=== PATIENT | female | born 1990 | race Caucasian/White ===

== ENCOUNTER 2016-09-04 04:50 | Inpatient (IN) | payer BC ==
[2016-09-04] MEDS ORDERED: Sodium Chloride 0.9% 10 ML Syringe FLUSH PRN (04:59)
[2016-09-04] MEDS ORDERED: Carboprost Tromethamine 250 MCG/1 ML Amp IM PRN (04:59)
[2016-09-04] MEDS ORDERED: Terbutaline 1 MG/ML SDV SUBCUT PRN (04:59)
[2016-09-04] MEDS ORDERED: Butorphanol 1 MG/ML SDV IVPUSH PRN (04:59)
[2016-09-04] MEDS ORDERED: Water For Irrigation,Sterile 1,000 ML Container IRR PRN (04:59)
[2016-09-04] MEDS ORDERED: Misoprostol 200 MCG Tab PO PRN (04:59)
[2016-09-04] MEDS ORDERED: Lidocaine 1% 50 ML MDV INJECT PRN (04:59)
[2016-09-04] MEDS ORDERED: Methylergonovine 0.2 MG/1 ML Amp IM PRN (04:59)
[2016-09-04] MEDS ORDERED: Sodium Chloride 0.9% 2.5 ML Syringe FLUSH PRN (04:59)
[2016-09-04] MEDS ORDERED: Ampicillin 2 GM in Sodium Chloride 0.9% 100 ML IV ONE (05:00)
[2016-09-04] MEDS ORDERED: Oxytocin/Lactated Ringers 30 UNIT/500 ML BAG IV SCH (05:00)
[2016-09-04] MEDS: Lactated Ringers 1,000 ML IV SCH ×2 (05:25→08:43)
[2016-09-04] MEDS ORDERED: Ampicillin 1 GM in Sodium Chloride 0.9% 50 ML IV SCH (09:00)
[2016-09-04] MEDS ORDERED: Docusate Sodium 100 MG Cap PO PRN (09:33)
[2016-09-04] MEDS ORDERED: Acetaminophen 500 MG Tab PO PRN ×2 (09:33)
[2016-09-04] MEDS ORDERED: Benzocaine/Menthol 20%-0.5% Spray 78 GM Cannister TOP PRN (09:33)
[2016-09-04] MEDS ORDERED: Bisacodyl 10 MG Supp RECTAL PRN (09:33)
[2016-09-04] MEDS ORDERED: oxyCODONE 5 MG Tab PO PRN (09:33)
[2016-09-04] MEDS ORDERED: Ibuprofen 400 MG Tab PO PRN (09:33)
[2016-09-04] MEDS ORDERED: Lanolin 100% Cream 7 GM Tube TOP PRN (09:33)
[2016-09-04] MEDS ORDERED: Witch Hazel Medicated Pads 40/Jar TOP PRN (09:33)
[2016-09-04] MEDS: Ibuprofen 800 MG Tab PO PRN ×2 (11:06→17:29)
[2016-09-05 07:57] VITALS: BP 93/52
--- NOTE | 2016-09-05 09:12 | PCM.PNPP ---
- General Info Date of Service: 09/05/16 Functional Status: Reports: pain controlled, tolerating diet, ambulating, urinating - Review of Systems General: Denies: Fever, Weakness Pulmonary: Denies: shortness of breath Cardiovascular: Denies: Chest Pain, Lightheadedness Gastrointestinal: Denies: Abdominal pain, Nausea, Vomiting Genitourinary: Denies: dysuria, flank pain Skin: Reports: no symptoms Psychiatric: Reports: no symptoms - General Info Date of Service: 09/05/16 - Patient Data Vital Signs - most recent: Last Vital Signs Temp 36.9 C 09/05/16 07:55 Pulse 94 09/05/16 07:55 Resp 16 09/05/16 07:55 BP 93/52 L 09/05/16 07:55 Pulse Ox 96 09/05/16 07:55 Weight - most recent: 93.44 kg Lab Results - last 24 hrs: Laboratory Results - last 24 hr 09/05/16 Range/Units 04:35 Hgb 10.7 L (12.0-16.0) g/dL Hct 32.5 L (36.0-46.0) % Med Orders - Current: Current Medications Acetaminophen (Tylenol Extra Strength) 500 mg PO Q4H PRN PRN Reason: Pain Acetaminophen (Tylenol Extra Strength) 1,000 mg PO Q4H PRN PRN Reason: Pain Benzocaine/Menthol (Dermoplast Pain Relief 20%-0.5% Leigh) 78 gm TOP ASDIRECTED PRN PRN Reason: Perineal Comfort Measure Last Admin: 09/04/16 11:05 Dose: 1 can Bisacodyl (Dulcolax) 10 mg RECTAL .ONCE PRN PRN Reason: Constipation Carboprost Tromethamine (Hemabate Ds) 250 mcg IM ASDIRECTED PRN PRN Reason: Post Hemorrhage Docusate Sodium (Colace) 100 mg PO BID PRN PRN Reason: Constipation Last Admin: 09/04/16 11:06 Dose: 100 mg Emollient Ointment (Lansinoh Hpa) 0 gm TOP ASDIRECTED PRN PRN Reason: Sore Nipples Lactated Ringer's (Ringers, Lactated) 1,000 mls @ 150 mls/hr IV ASDIRECTED SURINDER Last Admin: 09/04/16 08:43 Dose: 150 mls/hr Oxytocin/Lactated Ringer's (Pitocin In Lr 30 Units/500 Ml) 30 unit in 500 mls @ 2 mls/hr IV TITRATE SURINDER; 2 MUNITS/MIN PRN Reason: Protocol Last Titration: 09/04/16 09:11 Dose: 999 mls/hr Ibuprofen (Motrin) 400 mg PO Q4H PRN PRN Reason: Pain Ibuprofen (Motrin) 800 mg PO Q6H PRN PRN Reason: Pain Last Admin: 09/04/16 17:29 Dose: 800 mg Methylergonovine Maleate (Methergine) 0.2 mg IM ASDIRECTED PRN PRN Reason: Post Hemorrhage Oxycodone HCl (Oxycodone) 5 mg PO Q2H PRN PRN Reason: Pain Sodium Chloride (Saline Flush) 2.5 ml FLUSH ASDIRECTED PRN PRN Reason: Keep Vein Open Sterile Water (Sterile Water For Irrigation) 1,000 ml IRR ASDIRECTED PRN PRN Reason: delivery Witch Priyanka (Tucks) 1 pad TOP ASDIRECTED PRN PRN Reason: comfort care Last Admin: 09/04/16 11:05 Dose: 1 tub Discontinued Medications Butorphanol Tartrate (Stadol) 1 mg IVPUSH Q1H PRN PRN Reason: Pain Ampicillin Sodium 2 gm/ Sodium (Chloride) 100 mls @ 200 mls/hr IV ONETIME ONE Stop: 09/04/16 05:29 Last Admin: 09/04/16 05:41 Dose: 200 mls/hr Ampicillin Sodium 1 gm/ Sodium (Chloride) 50 mls @ 100 mls/hr IV Q4H SURINDER Last Admin: 09/04/16 09:43 Dose: Not Given Lidocaine HCl (Xylocaine 1%) 50 ml INJECT .ONCE PRN PRN Reason: Laceration repair Misoprostol (Cytotec) 200 mcg PO .ONCE PRN PRN Reason: Post Hemorrhage Sodium Chloride (Saline Flush) 10 ml FLUSH ASDIRECTED PRN PRN Reason: Keep Vein Open Terbutaline Sulfate (Brethine) 0.25 mg SUBCUT ASDIRECTED PRN PRN Reason: Tacysystole - Interaction Feeding: Breastfed ; Nursed Well Support Person: - Recovery Exam Fundal Tone: Firm Fundal Level: At Umbilicus Fundal Placement: Midline Lochia Amount: Small Lochia Color: Rubra/Red Perineum Description: Other (see below) Other Perinuem Description: Second degree perenial tear,repaired Episiotomy/Laceration: Approximated Bladder Status: Voiding Urinary Elimination: Voided - Exam General: alert, oriented Lungs: Normal respiratory effort Cardiovascular: Regular Rate, Regular Rhythm Abdomen: bowel sounds present, soft. No: CVA tenderness Extremities: no calf tenderness Wound/Incisions: healing well Psy/Mental Status: alert, normal affect - Problem List & Annotations (1) Vaginal delivery SNOMED Code(s): 501977615 Code(s): O80 - ENCOUNTER FOR FULL-TERM UNCOMPLICATED DELIVERY Status: Acute Current Visit: Yes - Problem List Review Problem List Initiated/Reviewed/Updated: Yes - My Orders Last 24 Hours: My Active Orders 09/04/16 09:33 Patient Status [ADT] Routine May Shower [RC] ASDIRECTED Up ad Anna [RC] ASDIRECTED Vital Signs [RC] PER UNIT ROUTINE Acetaminophen [Tylenol Extra Strength] 1,000 mg PO Q4H PRN Acetaminophen [Tylenol Extra Strength] 500 mg PO Q4H PRN Benzocaine/Menthol [Dermoplast Pain Relief 20%-0.5% Leigh] 78 gm TOP ASDIRECTED PRN Bisacodyl [Dulcolax] 10 mg RECTAL .ONCE PRN Docusate Sodium [Colace] 100 mg PO BID PRN Ibuprofen [Motrin] 400 mg PO Q4H PRN Ibuprofen [Motrin] 800 mg PO Q6H PRN Lanolin [Lansinoh HPA] See Dose Instructions TOP ASDIRECTED PRN Witch Priyanka [Tucks] 1 pad TOP ASDIRECTED PRN oxyCODONE 5 mg PO Q2H PRN Assess Lochia [WOMSER] Per Unit Routine Assess Uterine Involution [WOMSER] Per Unit Routine Peripheral IV Discontinue [OM.PC] Routine 09/04/16 09:34 Ice Therapy [OM.PC] Per Unit Routine Perineal Care [OM.PC] Per Unit Routine Sitz Bath [OM.PC] Per Unit Routine 09/05/16 09:09 Ready for Discharge [RC] PER UNIT ROUTINE - Assessment Assessment:: PPD 1 status post /2nd MLL repaired - Plan Plan:: Doing well overall, would like to go home today. Infection and bleeding warnings reviewed. Discharge to home. Discharge instructions reviewed. Follow up at [facility] 6 weeks.
--- NOTE | 2016-09-09 09:59 | OR ---
SURGEON: Maribell Ayers M.D. DATE OF PROCEDURE: 09/04/2016 PREOPERATIVE DIAGNOSES: 1. A 39 and 6 weeks intrauterine . 2. Induction of labor. POSTOPERATIVE DIAGNOSES: 1. A 39 and 6 weeks intrauterine . 2. Induction of labor. PROCEDURE: Spontaneous vaginal delivery, second-degree midline laceration repaired. ESTIMATED BLOOD LOSS: 350 mL. ANESTHESIA: Local. COMPLICATIONS: None. FINDINGS: Term male. score 8 at 1 minute, 9 at 5 minutes. Weight 3380 g. Spontaneous delivery, intact placenta, 3-vessel cord. DISPOSITION: to nursery, mom in LDRP, stable. PROCEDURE DETAILS: The patient is a 26-year-old, G2, P0-1-0-1, at 39 and 6 weeks' gestational age, who presents today for scheduled induction of labor due to term gestation lives remote from the hospital. Her previous was complicated by delivery at 28 weeks. This , she has received weekly progesterone injections up until 36 weeks. On the morning of admission, the patient was initially found to be at 2 cm. GBBS has been found in her urine culture. Therefore, she was admitted, routine labs were drawn, and initiated on ampicillin prophylaxis. The patient responded readily to the Pitocin and shortly after 8:00 a.m., was found to be increasingly uncomfortable and quite rapidly was already 6 cm. She continued to progress rapidly and had spontaneous rupture of membranes and quickly progressed to complete. Thereafter, I was called for delivery. Upon my arrival, the patient was placed in modified dorsal lithotomy position, prepped and draped in usual aseptic manner. station was already +4. She pushed readily and was able to deliver 's head atraumatically, spontaneously, followed by anterior shoulder, posterior shoulder, and main body without difficulty. Infant's oropharynx and nares were bulb suctioned. Cord was clamped x2 and cut. Infant was handed off to mother with attending nursing staff at her side. Cord arterial, cord venous, cord blood samples were obtained. Light suprapubic pressure was applied while the placenta was delivered spontaneously intact. Vigorous fundal uterine massage was then applied while 20 units of Picotin was delivered in 1 L of IV fluid. Upon inspection of cervix, vaginal sidewalls and perineum, there was found to be a second-degree midline laceration present. This was repaired using 3-0 Vicryl in the usual fashion after prepping the area with approximately 7 mL of 1% lidocaine. The patient tolerated the repair well. Upon inspection remainder of cervix, vaginaol sidewalls and perineum, they were found to be intact. Uterus remained firm. Hemostasis evident. The patient will remain in LDRP in stable condition. in nursery. Sponge and needle counts correct x2. KHAI / LOLA /[id number] MTDD
== END 2016-09-05 13:10 | disposition home or self-care (01) | DRG 560 ==
LOC: MW.OBCHECK 04:50 → MW.OB 04:50 → MW.OBCHECK 04:59 → OBSVTOIN 09:11 → MW.OB 14:59
PROVIDERS: ADMIT Obstetrics & Gynecology; ATTEND Obstetrics & Gynecology
PROC: 10E0XZZ Delivery of Products of Conception, External Approach (ICD-10-PCS; principal; 2016-09-04)
PROC: 3E033VJ Introduction of Other Hormone into Peripheral Vein, Percutaneous Approach (ICD-10-PCS; 2016-09-04)
PROC: 0KQM0ZZ Repair Perineum Muscle, Open Approach (ICD-10-PCS; 2016-09-04)
DX: O70.1 Second degree perineal laceration during delivery (principal); Z3A.39 39 weeks gestation of pregnancy; Z37.0 Single live birth
CPT/HCPCS: 36415; 59025; 85014; 85018; 85027; 86850; 86900; 86901; A9270-GY; J0290; J7030; J7120

== ENCOUNTER 2019-11-08 21:28 | Inpatient (IN) | payer OTHER ==
[2019-11-08] MEDS ORDERED: Misoprostol 200 MCG Tab PO PRN (21:55)
[2019-11-08] MEDS ORDERED: Nalbuphine 10 MG/1 ML Vial IVPUSH PRN (21:55)
[2019-11-08] MEDS ORDERED: Methylergonovine 0.2 MG/1 ML Amp IM PRN (21:55)
[2019-11-08] MEDS ORDERED: Water For Irrigation,Sterile 1,000 ML Container IRR PRN (21:55)
[2019-11-08] MEDS ORDERED: Sodium Chloride 0.9% 2.5 ML Syringe FLUSH PRN (21:55)
[2019-11-08] MEDS ORDERED: Butorphanol 1 MG/ML SDV IVPUSH PRN (21:55)
[2019-11-08] MEDS ORDERED: Sodium Chloride 0.9% 10 ML Syringe FLUSH PRN (21:55)
[2019-11-08] MEDS ORDERED: Tranexamic Acid 1,000 MG in Sodium Chloride 0.9% 100 ML IV PRN (21:55)
[2019-11-08] MEDS ORDERED: Carboprost Tromethamine 250 MCG/1 ML Amp IM PRN (21:55)
[2019-11-08] MEDS ORDERED: Lidocaine 1% 50 ML MDV INJECT PRN (21:55)
[2019-11-08] MEDS ORDERED: Ondansetron 4 MG/2 ML SDV IVPUSH PRN (21:55)
[2019-11-08] MEDS ORDERED: Sodium Chloride 0.9% 10 ML SDV IV PRN (21:55)
[2019-11-08] MEDS ORDERED: Oxytocin/0.9 % Sodium Chloride 30 UNIT/500 ML BAG IV SCH (22:00)
[2019-11-08] MEDS ORDERED: Ampicillin 2 GM in Sodium Chloride 0.9% 100 ML IV ONE (22:30)
[2019-11-08] MEDS: Lactated Ringers 1,000 ML IV SCH ×2 (22:59→23:36)
[2019-11-08] MEDS ORDERED: Ropivacaine 0.2% PF 2 MG/ML 20 ML SDV ONE (23:00)
[2019-11-08] MEDS ORDERED: fentaNYL/Bupivacaine-NS 2 MCG/ML-0.125%/PF 100 ML Bag EPIDUR ONE (23:00)
--- NOTE | 2019-11-08 23:36 | PCM.PREANE ---
Preanesthetic Assessment - Procedure Proposed Procedure: labor epidural - Anesthesia/Transfusion/Family Hx Anesthesia History: Prior Anesthesia Without Reaction Family History of Anesthesia Reaction: No - Review of Systems General: No Symptoms Pulmonary: No Symptoms Cardiovascular: No Symptoms Gastrointestinal: No Symptoms Neurological: No Symptoms Other: Reports: None - Physical Assessment Height: 5 ft 4 in Weight: 95.254 kg ASA Class: 2 Mental Status: Alert & Oriented x3 Dentition: Reports: Normal Dentition Thyro-Mental Finger Breadths: 3 Mouth Opening Finger Breadths: 3 ROM/Head Extension: Full Lungs: Clear to Auscultation, Normal Respiratory Effort Cardiovascular: Regular Rate, Regular Rhythm - Lab Values: Laboratory Last Values WBC 10.63 K/uL (4.0-11.0) 11/08/19 22:10 RBC 4.19 M/uL (4.30-5.90) L 11/08/19 22:10 Hgb 12.3 g/dL (12.0-16.0) 11/08/19 22:10 Hct 37.7 % (36.0-46.0) 11/08/19 22:10 MCV 90.0 fL (80.0-98.0) 11/08/19 22:10 MCH 29.4 pg (27.0-32.0) 11/08/19 22:10 MCHC 32.6 g/dL (31.0-37.0) 11/08/19 22:10 RDW Std Deviation 48.0 fl (28.0-62.0) 11/08/19 22:10 RDW Coeff of Todd 15 % (11.0-15.0) 11/08/19 22:10 Plt Count 178 K/uL (150-400) 11/08/19 22:10 MPV 11.90 fL (7.40-12.00) 11/08/19 22:10 Nucleated RBC % 0.0 /100WBC 11/08/19 22:10 Nucleated RBCs # 0 K/uL 11/08/19 22:10 - Allergies Allergies/Adverse Reactions: Allergies Allergy/AdvReac Type Severity Reaction Status Date / Time No Known Allergies Allergy Verified 11/08/19 21:54 - Blood Product(s) Available: None - Acknowledgements Anesthesia Type Planned: Epidural Pt an Appropriate Candidate for the Planned Anesthesia: Yes Alternatives and Risks of Anesthesia Discussed w Pt/Guardian: Yes Pt/Guardian Understands and Agrees with Anesthesia Plan: Yes PreAnesthesia Questionnaire ASSISTED LIVING MANAGER History: Reports: - Past Surgical History HEENT Surgical History: Reports: Oral Surgery - HOME MEDS Home Medications: Home Meds Pnv No.95/Ferrous Fum/Folic AC [ Tablet] 1 tab PO DAILY 09/04/16 [ History] - CURRENT (IN HOUSE) MEDS Current Meds: Current Medications Butorphanol Tartrate (Stadol) 1 mg IVPUSH Q1H PRN PRN Reason: Pain Carboprost Tromethamine (Hemabate Ds) 250 mcg IM ASDIRECTED PRN PRN Reason: Post Hemorrhage Ampicillin Sodium 1 gm/ Sodium (Chloride) 50 mls @ 100 mls/hr IV Q4H SURINDER Lactated Ringer's (Ringers, Lactated) 1,000 mls @ 150 mls/hr IV ASDIRECTED SURINDER Last Admin: 11/08/19 22:59 Dose: 999 mls/hr Oxytocin/Sodium Chloride (Oxytocin 30 Unit/500 Ml-Ns) 30 unit in 500 mls @ 999 mls/hr IV TITRATE [facility] Tranexamic Acid 1,000 mg/ (Sodium Chloride) 110 mls @ 660 mls/hr IV ONETIME PRN PRN Reason: Bleeding Lidocaine HCl (Xylocaine 1%) 50 ml INJECT ONETIME PRN PRN Reason: Laceration repair Methylergonovine Maleate (Methergine) 0.2 mg IM ASDIRECTED PRN PRN Reason: Post Hemorrhage Misoprostol (Cytotec) 200 mcg PO ONETIME PRN PRN Reason: Post Hemorrhage Nalbuphine HCl (Nubain) 10 mg IVPUSH Q1H PRN PRN Reason: Pain (severe 7-10) Ondansetron HCl (Zofran) 4 mg IVPUSH Q6H PRN PRN Reason: Nausea/Vomiting Sodium Chloride (Saline Flush) 10 ml FLUSH ASDIRECTED PRN PRN Reason: Keep Vein Open Sodium Chloride (Saline Flush) 2.5 ml FLUSH ASDIRECTED PRN PRN Reason: Keep Vein Open Sodium Chloride (Normal Saline) 10 ml IV ASDIRECTED PRN PRN Reason: IV Use Sterile Water (Sterile Water For Irrigation) 1,000 ml IRR ASDIRECTED PRN PRN Reason: delivery Discontinued Medications Ampicillin Sodium 2 gm/ Sodium (Chloride) 100 mls @ 200 mls/hr IV ONETIME ONE Stop: 11/08/19 22:59 Last Admin: 11/08/19 22:19 Dose: 200 mls/hr Ropivacaine (Naropin 0.2%) Confirm Administered Dose 20 ml .ROUTE .[facility]-MED ONE Stop: 11/08/19 23:01
[2019-11-09] MEDS ORDERED: Ampicillin 1 GM in Sodium Chloride 0.9% 50 ML IV SCH (02:30)
[2019-11-09] MEDS ORDERED: Acetaminophen 500 MG Tab PO PRN ×2 (05:23)
[2019-11-09] MEDS ORDERED: Benzocaine/Menthol 20%-0.5% Spray 78 GM Cannister TOP PRN (05:23)
[2019-11-09] MEDS ORDERED: Aluminum Hydroxide/Magnesium Hydroxide/Simethicone Susp 30 ML Cup PO PRN (05:23)
[2019-11-09] MEDS ORDERED: Docusate Sodium 100 MG Cap PO PRN (05:23)
[2019-11-09] MEDS ORDERED: Witch Hazel Medicated Pads 40/Jar TOP PRN (05:23)
[2019-11-09] MEDS ORDERED: Lanolin 100% Cream 7 GM Tube TOP PRN (05:23)
[2019-11-09] MEDS ORDERED: Bisacodyl 10 MG Supp RECTAL PRN (05:23)
[2019-11-09] MEDS ORDERED: Ibuprofen 400 MG Tab PO PRN (05:23)
[2019-11-09] MEDS ORDERED: oxyCODONE 5 MG Tab PO PRN (05:23)
--- NOTE | 2019-11-09 05:31 | PCM.OPNOTE ---
- General Post-Op/Procedure Note Date of Surgery/Procedure: 11/09/19 Operative Procedure(s): /IP Findings: Viable male APGARs 7, 9 weight 3580 gm. Spontaneous delivery intact placenta with 3V cord Pre Op Diagnosis: 39/5 week IUP. SROM. GBBS + Post-Op Diagnosis: Same Anesthesia Technique: Epidural Primary Surgeon: Maribell Ayers EBL in mLs: 250 Complications: None known Condition: Stable Free Text/Narrative:: Dictation [id number]
--- NOTE | 2019-11-09 06:34 | OR ---
SURGEON: Maribell Ayers M.D. DATE OF PROCEDURE: 11/09/2019 PREOPERATIVE DIAGNOSES: 1. 39 and 5 weeks' intrauterine . 2. Spontaneous rupture of membranes. 3. Group B Streptococcus positive. POSTOPERATIVE DIAGNOSES: 1. 39 and 5 weeks' intrauterine . 2. Spontaneous rupture of membranes. 3. Group B Streptococcus positive. PROCEDURE: Spontaneous vaginal delivery, intact perineum. PRIMARY SURGEON: Maribell Ayers M.D. ANESTHESIA: Epidural. ESTIMATED BLOOD LOSS: 250 mL. COMPLICATIONS: None known. FINDINGS: Viable male scores 8 at one minute and 9 at five minutes. Weight of 3580 g. Spontaneous delivery, intact placenta, 3-vessel cord. DISPOSITION: to nursery. Mom in LDRP. PROCEDURE DETAILS: Bridget is a 29-year-old, G3, P2 at 39 and 4 weeks' gestational age, who presented on the evening of 11/08/2019 with a leaking fluid, clear. On initial examination, she was found to be grossly ruptured. She is known group B beta strep positive. Therefore, she was admitted. Routine labs were drawn. IV hydration was initiated, and group B beta strep prophylaxis was initiated. The heart tones were category 1. The patient was initially found to be 4 to 5 cm. After being hydrated, she underwent regional anesthesia in the form of epidural, became more comfortable, and she continued to progress through the public defender hours. Shortly before 5 a.m., the patient was found to be complete, 100% effaced, +2 station, was called for delivery. Upon my arrival, the patient was placed in modified dorsal lithotomy position, was prepped and draped in the usual aseptic manner. Began pushing efforts. With the next 2 contractions, she was able to deliver the infant's head atraumatically spontaneously, followed by anterior shoulder, posterior shoulder, and remainder of the body without difficulty. The infant was handed off to his mother with attending nursing staff at her side. After delayed cord was clamped x2 and cut, cord arterial, cord venous, cord blood sampling were obtained. Light pressure was applied while the placenta delivered spontaneously intact. Vigorous fundal uterine massage was then applied while 30 units Pitocin was delivered in 500 mL of fluid. Upon inspection of cervix, vaginal sidewall, and perineum, these were found to be intact. The uterus remained firm. Sponge count and instrument count were correct. The patient remained in LDRP. Infant to nursery. KHAI / LOLA /[id number]
[2019-11-09] MEDS: Ibuprofen 800 MG Tab PO PRN (10:36)
--- NOTE | 2019-11-09 15:04 | PCM48HPAN ---
Post Anesthesia Note - EVALUATION WITHIN 48HRS OF ANESTHETIC Vital Signs in Normal Range: Yes Patient Participated in Evaluation: Yes Respiratory Function Stable: Yes Airway Patent: Yes Cardiovascular Function Stable: Yes Hydration Status Stable: Yes Pain Control Satisfactory: Yes Nausea and Vomiting Control Satisfactory: Yes Mental Status Recovered: Yes Vital Signs: Last Vital Signs Temp 36.2 C 11/09/19 08:00 Pulse 92 11/09/19 08:00 Resp 16 11/09/19 08:00 BP 107/78 11/09/19 08:00 Pulse Ox 97 11/09/19 08:00 - COMMENTS/OBSERVATIONS Free Text/Narrative:: No anesthesia concerns or complications noted.
--- NOTE | 2019-11-10 13:18 | PCM.PNPP ---
- General Info Date of Service: 11/10/19 Functional Status: Reports: Pain Controlled, Tolerating Diet, Ambulating, Urinating - Review of Systems General: Reports: Fatigue. Denies: Fever, Weakness Pulmonary: Denies: Shortness of Breath Cardiovascular: Denies: Chest Pain, Palpitations, Lightheadedness Gastrointestinal: Denies: Abdominal Pain, Nausea, Vomiting Genitourinary: Reports: No Symptoms Musculoskeletal: Reports: No Symptoms Skin: Reports: No Symptoms Neurological: Reports: No Symptoms Psychiatric: Reports: No Symptoms - General Info Date of Service: 11/10/19 - Patient Data Vital Signs - Most Recent: Last Vital Signs Temp 36.3 C 11/09/19 20:00 Pulse 100 11/10/19 04:15 Resp 18 11/10/19 04:15 BP 129/75 11/10/19 04:15 Pulse Ox 97 11/10/19 04:15 Weight - Most Recent: 95.254 kg Lab Results - Last 24 Hours: Laboratory Results - last 24 hr 11/10/19 Range/Units 06:10 Hgb 11.1 L (12.0-16.0) g/dL Hct 34.6 L (36.0-46.0) % Med Orders - Current: Current Medications Acetaminophen (Tylenol Extra Strength) 500 mg PO Q4H PRN PRN Reason: Pain Acetaminophen (Tylenol Extra Strength) 1,000 mg PO Q4H PRN PRN Reason: Pain Al Hydroxide/Mg Hydroxide (Mag-Al Plus) 30 ml PO Q8H PRN PRN Reason: Heartburn Benzocaine/Menthol (Dermoplast Pain Relief 20%-0.5% Vista) 78 gm TOP ASDIRECTED PRN PRN Reason: Perineal Comfort Measure Bisacodyl (Dulcolax) 10 mg RECTAL ONETIME PRN PRN Reason: Constipation Carboprost Tromethamine (Hemabate Ds) 250 mcg IM ASDIRECTED PRN PRN Reason: Post Hemorrhage Docusate Sodium (Colace) 100 mg PO BID PRN PRN Reason: Constipation Emollient Ointment (Lansinoh Hpa) 0 gm TOP ASDIRECTED PRN PRN Reason: Sore Nipples Lactated Ringer's (Ringers, Lactated) 1,000 mls @ 150 mls/hr IV ASDIRECTED SURINDER Last Admin: 11/08/19 23:36 Dose: 150 mls/hr Oxytocin/Sodium Chloride (Oxytocin 30 Unit/500 Ml-Ns) 30 unit in 500 mls @ 999 mls/hr IV TITRATE SURINDER Last Admin: 11/09/19 04:58 Dose: 999 mls/hr Tranexamic Acid 1,000 mg/ (Sodium Chloride) 110 mls @ 660 mls/hr IV ONETIME PRN PRN Reason: Bleeding Ibuprofen (Motrin) 400 mg PO Q4H PRN PRN Reason: Pain Ibuprofen (Motrin) 800 mg PO Q6H PRN PRN Reason: Pain Last Admin: 11/09/19 10:36 Dose: 800 mg Lidocaine HCl (Xylocaine 1%) 50 ml INJECT ONETIME PRN PRN Reason: Laceration repair Methylergonovine Maleate (Methergine) 0.2 mg IM ASDIRECTED PRN PRN Reason: Post Hemorrhage Misoprostol (Cytotec) 200 mcg PO ONETIME PRN PRN Reason: Post Hemorrhage Nalbuphine HCl (Nubain) 10 mg IVPUSH Q1H PRN PRN Reason: Pain (severe 7-10) Ondansetron HCl (Zofran) 4 mg IVPUSH Q6H PRN PRN Reason: Nausea/Vomiting Oxycodone HCl (Oxycodone) 5 mg PO Q2H PRN PRN Reason: Pain Sodium Chloride (Saline Flush) 10 ml FLUSH ASDIRECTED PRN PRN Reason: Keep Vein Open Sodium Chloride (Saline Flush) 2.5 ml FLUSH ASDIRECTED PRN PRN Reason: Keep Vein Open Sodium Chloride (Normal Saline) 10 ml IV ASDIRECTED PRN PRN Reason: IV Use Sterile Water (Sterile Water For Irrigation) 1,000 ml IRR ASDIRECTED PRN PRN Reason: delivery Last Admin: 11/09/19 05:24 Dose: 1,000 ml Witch Priyanka (Tucks) 1 pad TOP ASDIRECTED PRN PRN Reason: comfort care Discontinued Medications Butorphanol Tartrate (Stadol) 1 mg IVPUSH Q1H PRN PRN Reason: Pain Fentanyl/Bupivacaine HCl (Uonzrphe-Jyoks-Jv 2 Mcg/Ml-0.125%) 100 ml EPIDUR .STK -MED ONE Stop: 11/08/19 23:01 Ampicillin Sodium 2 gm/ Sodium (Chloride) 100 mls @ 200 mls/hr IV ONETIME ONE Stop: 11/08/19 22:59 Last Admin: 11/08/19 22:19 Dose: 200 mls/hr Ampicillin Sodium 1 gm/ Sodium (Chloride) 50 mls @ 100 mls/hr IV Q4H SURINDER Last Admin: 11/09/19 01:58 Dose: 100 mls/hr Ropivacaine (Naropin 0.2%) Confirm Administered Dose 20 ml .ROUTE .STK-MED ONE Stop: 11/08/19 23:01 Last Admin: 11/09/19 16:02 Dose: Not Given - Interaction Support Person: - Recovery Exam Fundal Tone: Firm Fundal Level: At Umbilicus Fundal Placement: Midline Lochia Amount: Small Lochia Color: Rubra/Red Perineum Description: Intact, Minimal Bruising/Swelling Episiotomy/Laceration: None Bladder Status: Voiding Urinary Elimination: Voided - Exam General: Alert, Oriented Lungs: Normal Respiratory Effort Cardiovascular: Regular Rate, Regular Rhythm GI/Abdominal Exam: Normal Bowel Sounds, Soft Extremities: Pedal Edema (trace). No: Zoya's Sign Skin: Warm, Dry, Intact Neurological: No New Focal Deficit Psy/Mental Status: Alert, Normal Affect, Normal Mood - Problem List & Annotations (1) Vaginal delivery SNOMED Code(s): 369833764 Code(s): O80 - ENCOUNTER FOR FULL-TERM UNCOMPLICATED DELIVERY Status: Acute Current Visit: No - Problem List Review Problem List Initiated/Reviewed/Updated: Yes - Assessment Assessment:: PPD 1 status post - Plan Plan:: Continue PP cares. Doing well overall. Pedi may want to monitor baby the 48 hours given GBBS status positive. If so, plan discharge in am. Discharge instructions reviewed.
[2019-11-10] MEDS: Ibuprofen 800 MG Tab PO PRN (20:51)
[2019-11-11 04:29] VITALS: PULSE 83
--- NOTE | 2019-11-11 08:05 | PCM.PNPP ---
- General Info Date of Service: 11/11/19 Functional Status: Reports: Pain Controlled, Tolerating Diet, Ambulating, Urinating - Review of Systems General: Reports: No Symptoms HEENT: Reports: No Symptoms Pulmonary: Reports: No Symptoms Cardiovascular: Reports: No Symptoms Gastrointestinal: Reports: No Symptoms Genitourinary: Reports: No Symptoms Musculoskeletal: Reports: No Symptoms Skin: Reports: No Symptoms Neurological: Reports: No Symptoms Psychiatric: Reports: No Symptoms - Patient Data Vital Signs - Most Recent: Last Vital Signs Temp 36.4 C 11/11/19 04:28 Pulse 83 11/11/19 04:28 Resp 18 11/11/19 04:28 BP 114/74 11/11/19 04:28 Pulse Ox 97 11/11/19 04:28 Weight - Most Recent: 95.254 kg Med Orders - Current: Current Medications Acetaminophen (Tylenol Extra Strength) 500 mg PO Q4H PRN PRN Reason: Pain Acetaminophen (Tylenol Extra Strength) 1,000 mg PO Q4H PRN PRN Reason: Pain Al Hydroxide/Mg Hydroxide (Mag-Al Plus) 30 ml PO Q8H PRN PRN Reason: Heartburn Benzocaine/Menthol (Dermoplast Pain Relief 20%-0.5% [place]) 78 gm TOP ASDIRECTED PRN PRN Reason: Perineal Comfort Measure Bisacodyl (Dulcolax) 10 mg RECTAL ONETIME PRN PRN Reason: Constipation Carboprost Tromethamine (Hemabate Ds) 250 mcg IM ASDIRECTED PRN PRN Reason: Post Hemorrhage Docusate Sodium (Colace) 100 mg PO BID PRN PRN Reason: Constipation Emollient Ointment (Lansinoh Hpa) 0 gm TOP ASDIRECTED PRN PRN Reason: Sore Nipples Lactated Ringer's (Ringers, Lactated) 1,000 mls @ 150 mls/hr IV ASDIRECTED [facility] Last Admin: 11/08/19 23:36 Dose: 150 mls/hr Oxytocin/Sodium Chloride (Oxytocin 30 Unit/500 Ml-Ns) 30 unit in 500 mls @ 999 mls/hr IV TITRATE [facility] Last Admin: 11/09/19 04:58 Dose: 999 mls/hr Tranexamic Acid 1,000 mg/ (Sodium Chloride) 110 mls @ 660 mls/hr IV ONETIME PRN PRN Reason: Bleeding Ibuprofen (Motrin) 400 mg PO Q4H PRN PRN Reason: Pain Ibuprofen (Motrin) 800 mg PO Q6H PRN PRN Reason: Pain Last Admin: 11/10/19 20:51 Dose: 800 mg Lidocaine HCl (Xylocaine 1%) 50 ml INJECT ONETIME PRN PRN Reason: Laceration repair Methylergonovine Maleate (Methergine) 0.2 mg IM ASDIRECTED PRN PRN Reason: Post Hemorrhage Misoprostol (Cytotec) 200 mcg PO ONETIME PRN PRN Reason: Post Hemorrhage Nalbuphine HCl (Nubain) 10 mg IVPUSH Q1H PRN PRN Reason: Pain (severe 7-10) Ondansetron HCl (Zofran) 4 mg IVPUSH Q6H PRN PRN Reason: Nausea/Vomiting Oxycodone HCl (Oxycodone) 5 mg PO Q2H PRN PRN Reason: Pain Sodium Chloride (Saline Flush) 10 ml FLUSH ASDIRECTED PRN PRN Reason: Keep Vein Open Sodium Chloride (Saline Flush) 2.5 ml FLUSH ASDIRECTED PRN PRN Reason: Keep Vein Open Sodium Chloride (Normal Saline) 10 ml IV ASDIRECTED PRN PRN Reason: IV Use Sterile Water (Sterile Water For Irrigation) 1,000 ml IRR ASDIRECTED PRN PRN Reason: delivery Last Admin: 11/09/19 05:24 Dose: 1,000 ml Witch Priyanka (Tucks) 1 pad TOP ASDIRECTED PRN PRN Reason: comfort care Discontinued Medications Butorphanol Tartrate (Stadol) 1 mg IVPUSH Q1H PRN PRN Reason: Pain Fentanyl/Bupivacaine HCl (Yweelkko-Ybwdy-Ko 2 Mcg/Ml-0.125%) 100 ml EPIDUR .STK -MED ONE Stop: 11/08/19 23:01 Ampicillin Sodium 2 gm/ Sodium (Chloride) 100 mls @ 200 mls/hr IV ONETIME ONE Stop: 11/08/19 22:59 Last Admin: 11/08/19 22:19 Dose: 200 mls/hr Ampicillin Sodium 1 gm/ Sodium (Chloride) 50 mls @ 100 mls/hr IV Q4H [facility] Last Admin: 11/09/19 01:58 Dose: 100 mls/hr Ropivacaine (Naropin 0.2%) Confirm Administered Dose 20 ml .ROUTE .STK-MED ONE Stop: 11/08/19 23:01 Last Admin: 11/09/19 16:02 Dose: Not Given - Interaction Disposition, : [place] in Room with Family Infant Interaction: Holding Infant Feeding: Attempted ; Nursed Fair/Poor Support Person: - Recovery Exam Fundal Tone: Firm Fundal Level: 1 Fingerbreadths Below Umbilicus Fundal Placement: Midline Lochia Amount: Small Lochia Color: Rubra/Red Bladder Status: Voiding Urinary Elimination: Voided - Exam General: Alert, Oriented Neck: Supple Lungs: Normal Respiratory Effort Cardiovascular: Regular Rate, Regular Rhythm GI/Abdominal Exam: Soft, Non-Tender Extremities: Non-Tender Skin: Warm, Dry, Intact Neurological: No New Focal Deficit Psy/Mental Status: Alert, Normal Affect, Normal Mood - Problem List & Annotations (1) Vaginal delivery SNOMED Code(s): 368473374 Code(s): O80 - ENCOUNTER FOR FULL-TERM UNCOMPLICATED DELIVERY Status: Acute Current Visit: No - Problem List Review Problem List Initiated/Reviewed/Updated: Yes - My Orders Last 24 Hours: My Active Orders 11/11/19 08:04 Ready for Discharge [RC] PER UNIT ROUTINE - Assessment Assessment:: PPD 2 status post - Plan Plan:: Discharge home today, reviewed discharge instructions. Follow-up in 6 weeks for PP visit.
[2019-11-11 08:17] VITALS: BP 115/72
== END 2019-11-11 10:15 | disposition home or self-care (01) | DRG 807 ==
LOC: MW.OB 21:28 → MW.OBCHECK 21:28 → MW.OB 21:32 → MW.OBCHECK 21:32 → MW.OB 11-09 10:00 → OBSVTOIN 11-09 10:00 → MW.OB 11-09 10:01
PROVIDERS: ADMIT Obstetrics & Gynecology; ATTEND Obstetrics & Gynecology
PROC: 10E0XZZ Delivery of Products of Conception, External Approach (ICD-10-PCS; principal; 2019-11-09)
PROC: 3E0R3BZ Introduction of Anesthetic Agent into Spinal Canal, Percutaneous Approach (ICD-10-PCS; 2019-11-09)
DX: O99.824 Streptococcus B carrier state complicating childbirth (principal); Z37.0 Single live birth; Z3A.39 39 weeks gestation of pregnancy
CPT/HCPCS: 36415; 51702; 59025; 59409; 82803; 85014; 85018; 85027; 86592; 86593; 86850; 86900; 86901; A9270-GY; J0290; J2590; J2795; J7050; J7120

== ENCOUNTER 2022-08-01 09:39 | Day surgery (SDC) | payer BC, OTHER ==
[~2022-08-01 09:39] MED LIST: Lactated Ringers 1,000 ML IV SCH
[2022-08-01] MEDS ORDERED: Lidocaine 2% 5 ML SDV ONE (09:58)
[2022-08-01] MEDS ORDERED: Propofol 200 MG/20 ML SDV ONE ×2 (09:59→11:06)
[2022-08-01 11:50] VITALS: BP 101/65; PULSE 71
== END 2022-08-01 12:15 | disposition home or self-care (01) ==
LOC: MW.SDS 09:39
PROVIDERS: ATTEND Surgery
DX: Z12.11 Encounter for screening for malignant neoplasm of colon (principal); Z98.890 Other specified postprocedural states; Z80.0 Family history of malignant neoplasm of digestive organs; Z79.899 Other long term (current) drug therapy
CPT/HCPCS: 45378; 81025; J2704; J7120; J3490